=== PATIENT | male | born 1985 | race Caucasian/White ===

== ENCOUNTER 2020-12-03 14:00 | Emergency (ER) | payer OTHER, SELFPAY ==
[2020-12-03 14:21] VITALS: BP 131/70; PULSE 73; RESP 18; TEMP 37.1; O2SAT 100
--- NOTE | 2020-12-03 14:36 | ED.URI ---
HPI - URI/Sore Throat General Chief Complaint: Upper Respiratory Infection Stated Complaint: Congestion,Headache,Nausea,Body Aches Time Seen by Provider: 12/03/20 14:37 Source: patient Mode of arrival: ambulatory Limitations: no limitations History of Present Illness HPI Narrative: Devin Zafar is a 35-year-old male with no PMH who comes to [facility] with complaints of upper respiratory symptoms such as congestion, occasional cough, muscle aches.. He has been exposed to Covid by 2 coworkers and he has had symptoms for 5 days. His has recently had heart surgery. Wants to be tested and treated. Has had Covid vaccine Related Data Home Medications Medication Instructions Recorded Confirmed No Home Medications 12/03/20 12/03/20 Allergies Allergy/AdvReac Type Severity Reaction Status Date / Time sulfamethoxazole Allergy Unknown Verified 12/03/20 14:38 [From Bactrim] trimethoprim [From Bactrim] Allergy Unknown Verified 12/03/20 14:38 Review of Systems Review of Systems: CONSTITUTIONAL: Denies fever, chills, sweats. EYES: Denies visual changes, redness, discharge. ENT: Has rhinorrhea, has congestion, has sore throat, otalgia. CARDIOVASCULAR: Denies chest pain, palpitations, edema. RESPIRATORY: Denies dyspnea, wheezing, cough GASTROINTESTINAL: Denies abdominal pain, nausea, vomiting, diarrhea. GENITOURINARY: Denies dysuria, hematuria, abnormal discharge SKIN: Denies rash or itching. NEUROLOGIC: Denies numbness, or focal weakness. PSYCHIATRIC: Denies anxiety or depression. PMFSH Past Medical History Medical History (Updated 12/03/20 @ 14:54 by Khadra Horta CNP) No acute medical problems Social History Social History (Updated 12/03/20 @ 14:42 by Khadra Horta CNP) Alcohol intake: current Comments At time of signature, I agree with nursing past medical, surgical, social and family history. There is no relevant family history pertinent to the presenting complaint. Exam Narrative: GENERAL: This is a well-nourished, well-developed patient, in mild distress. HEAD: normocephalic, atraumatic. EYES: Sclera clear/white. Vision is grossly intact. EARS: External ears normal, auditory canals clear and without drainage, TMs normal without perforation. Hearing grossly intact. NOSE: External nose normal without nasal discharge, nares without redness, no rhinorrhea. THROAT: Mucous membranes moist, posterior pharynx mild erythema NECK: Neck supple, non-tender CARDIOVASCULAR: Regular rate and rhythm without murmurs, gallops, or rubs. RESPIRATORY: Clear to auscultation. Breath sounds equal bilaterally. GASTROINTESTINAL: Not performed, SKIN: warm, intact with no suspicious lesions or rash, good texture and turgor. NEURO: awake, alert, and oriented to person, place and time. There were no obvious focal neurologic abnormalities. Steady gait EXTREMITIES: Normal range of motion. BACK: Nontender without deformity Course Course Emergency Course: Patient here with suppose it 5 days of symptoms of upper respiratory congestion and sore throat and exposure to other people that had Covid Covid, strep, flu all negative Discharged with information about Covid and viral transmission-since he received vaccination, is not required quarantine Vital Signs Vital signs: Vital Signs Temperature 98.8 F 12/03/20 14:21 Pulse Rate 73 12/03/20 14:21 Respiratory Rate 18 12/03/20 14:21 Blood Pressure 131/70 12/03/20 14:21 Pulse Oximetry 100 12/03/20 14:21 Temperature 98.8 F 12/03/20 14:21 Pulse Rate 73 12/03/20 14:21 Respiratory Rate 18 12/03/20 14:21 Blood Pressure 131/70 12/03/20 14:21 Pulse Oximetry 100 12/03/20 14:21 MDM - URI/Sore Throat Differential Diagnosis Differential diagnosis: Likely upper respiratory infection, viral infection, influenza, pharyngitis and other Lab Data Labs: Lab Results 12/03/20 Range/Units 14:33 POC SARS CoV-2 Ag Negative (Negative)
== END 2020-12-03 15:05 | disposition home or self-care (01) ==
PROVIDERS: Emergency Provider Nurse Practitioner
DX: Z20.822 Contact with and (suspected) exposure to COVID-19 (principal); R09.89 Other specified symptoms and signs involving the circulatory and respiratory systems; R51.9 Headache, unspecified; R11.0 Nausea
CPT/HCPCS: 87081; 87426; 87804; 87880; 99203; C9803; G0463

== ENCOUNTER 2021-02-18 10:04 | Emergency (ER) | payer OTHER, SELFPAY ==
[2021-02-18 10:47] VITALS: BP 132/86; PULSE 93; RESP 16; TEMP 36.7; O2SAT 100
--- NOTE | 2021-02-18 11:39 | ED.URI ---
HPI - URI/Sore Throat General Chief Complaint: Upper Respiratory Infection Stated Complaint: Fever,Headache,Fatigue Time Seen by Provider: 02/18/21 11:30 Source: patient and RN notes reviewed Mode of arrival: ambulatory Limitations: no limitations History of Present Illness HPI Narrative: Patient presents today with a 3-day history of chills with fever up to 101, fatigue, headache. Denies any additional symptoms to include rhinorrhea, body aches, cough, sore throat. He took a COVID-19 test yesterday that was negative. He has been taking Tylenol with some relief and currently rates his headache 05/24. He has been vaccinated against COVID-19 and has not had an influenza vaccine. MD elicited complaint: fever Related Data Home Medications Medication Instructions Recorded Confirmed 24 Hour Allergy Relief 02/18/21 Allergies Allergy/AdvReac Type Severity Reaction Status Date / Time sulfamethoxazole Allergy Unknown Verified 02/18/21 11:11 [From Bactrim] trimethoprim [From Bactrim] Allergy Unknown Verified 02/18/21 11:11 Review of Systems Review of Systems: CONSTITUTIONAL: Denies body aches, or sweats.+ Fever, chills, fatigue EYES: Denies visual changes, redness, or discharge. ENT: Denies rhinorrhea, congestion, sore throat, or otalgia. CARDIOVASCULAR: Denies chest pain, palpitations, or edema. RESPIRATORY: Denies cough or dyspnea. GASTROINTESTINAL: Denies abdominal pain, nausea, vomiting, or diarrhea. GENITOURINARY: Denies dysuria or hematuria. SKIN: Denies rash, itching, or wounds. MUSCULOSKELETAL: Denies back pain, joint pain, or myalgia. NEUROLOGIC: Denies numbness, tingling, or weakness.+ Headache PSYCH: Denies depression or anxiety. [facility] Past Medical History Medical History No acute medical problems Social History Social History Alcohol intake: current Comments At time of signature, I have reviewed and agree with nursing past medical, surgical, social and family history unless otherwise noted. Please see nursing chart for further information. There is no relevant family history pertinent to the presenting complaint Exam Narrative: GENERAL: Well-appearing, well-nourished, and in no acute distress. HEAD: Normocephalic, atraumatic. EYES: EOMI. No redness or drainage. Conjunctivae normal. ENT: Mucous membranes pink and moist. Nares clear. No rhinorrhea. TMs normal bilaterally. Throat normal. Uvula midline. NECK: Normal AROM. Supple. No lymphadenopathy. CHEST: No respiratory distress. Clear to auscultation. HEART: Regular rate and rhythm. No murmur appreciated. Normal peripheral pulses. EXTREMITIES: Normal range of motion. No edema. SKIN: Warm, dry, no rash. Capillary refill normal. Normal skin turgor. NEURO: No focal deficits. Alert and oriented x3. Gait steady. PSYCH: Normal affect. No signs of depression or anxiety. Course Course Level of Care: Express Care Visit Vital Signs Vital signs: Vital Signs Temperature 98.0 F 02/18/21 10:47 Pulse Rate 93 02/18/21 10:47 Respiratory Rate 16 02/18/21 10:47 Blood Pressure 132/86 02/18/21 10:47 Pulse Oximetry 100 02/18/21 10:47 Temperature 98.0 F 02/18/21 10:47 Pulse Rate 93 02/18/21 10:47 Respiratory Rate 16 02/18/21 10:47 Blood Pressure 132/86 02/18/21 10:47 Pulse Oximetry 100 02/18/21 10:47 At time of signature, I have reviewed and agree with nursing past medical, surgical, social and family history unless otherwise noted. Please see nursing chart for further information. There is no relevant family history pertinent to the presenting complaint MDM - URI/Sore Throat Differential Diagnosis Differential diagnosis: Likely upper respiratory infection, viral infection and influenza Lab Data Attestation: I reviewed the patient's lab results. Labs: Influenza A Screen Ne
== END 2021-02-18 12:28 | disposition home or self-care (01) ==
PROVIDERS: Emergency Provider Nurse Practitioner
DX: B34.9 Viral infection, unspecified (principal)
CPT/HCPCS: 87804; 99213; G0463

== ENCOUNTER 2022-07-11 08:43 | Emergency (ER) | payer OTHER, SELFPAY ==
--- NOTE | 2022-07-11 08:45 | ED.EXTPRO ---
HPI - Extremity Problem General Chief complaint: Extremity Injury, Lower Stated complaint: Big Toe Lt Foot Time Seen by Provider: 07/11/22 08:44 Source: patient Mode of arrival: ambulatory Limitations: no limitations History of Present Illness HPI Narrative: Devin is a 36-year-old male patient presenting to the clinic today with complaints of left great toe pain/infected toenail. He reports yesterday he attempted to remove a ingrown toenail and now it is red and swollen. He states that he has had the ingrown toenail for some time and bumped his toe against an object a few days ago and it became more red and swollen. Does have some yellowish white purulent discharge coming from the toe. Is very tender to palpation. States he thinks he got the ingrown toenail out last night however the redness and swelling has increased. Related Data Home Medications Medication Instructions Recorded Confirmed 24 Hour Allergy Relief 02/18/21 Allergies Allergy/AdvReac Type Severity Reaction Status Date / Time sulfamethoxazole Allergy Unknown Verified 07/11/22 08:56 [From Bactrim] trimethoprim [From Bactrim] Allergy Unknown Verified 07/11/22 08:56 Review of Systems Review of Systems: Pertinent positives per HPI. Patient denies any fever, chills, rash, headache, visual changes, dizziness, cough, runny nose, sore throat, shortness of breath, chest pain, palpitations, nausea, vomiting, diarrhea, constipation, abdominal pain, or any urinary issues. PMFSH Past Medical History Medical History No acute medical problems Social History Social History Alcohol intake: current Comments At the time of my signature, I reviewed and agree with the nursing past medical, surgical, social, and family history. There is no relevant family history pertinent to the patient complaint. Exam Narrative: General: Well-developed, well nourished, in no apparent distress Head: Normocephalic, atraumatic. Cardio: Regular rate and rhythm, s1 and s2 normal, no murmur appreciated. Resp: Clear to auscultation bilaterally, no rhonchi, rales, wheezing or rubs. Musculoskeletal: No deformity, redness and swelling to the lateral aspect of the left great toe, tender to palpation over the left lateral great toe, some yellow white purulent discharge noted to the left lateral toe nail bed from where ingrown toenail was removed, grossly normal range of motion, muscle strength strong and equal, peripheral pulse strong, no edema, no cyanosis, normal gait and station Course Course Emergency Course: Portions of this record may have been created with voice recognition software. Level of Care: Express Care Visit Vital Signs Vital signs: Vital Signs Temperature 36.5 C 07/11/22 08:50 Pulse Rate 57 L 07/11/22 08:50 Respiratory Rate 18 07/11/22 08:50 Blood Pressure 130/79 07/11/22 08:50 Pulse Oximetry 100 07/11/22 08:50 Oxygen Delivery Room Air 07/11/22 08:50 Temperature 36.5 C 07/11/22 08:50 Pulse Rate 57 L 07/11/22 08:50 Respiratory Rate 18 07/11/22 08:50 Blood Pressure 130/79 07/11/22 08:50 Pulse Oximetry 100 07/11/22 08:50 Oxygen Delivery Room Air 07/11/22 08:50 Vital signs reviewed MDM - Extremity (Nontraumatic) MDM Narrative Medical decision making narrative: At the time of the patient is resting on the exam table. I suspect patient may have an ingrown toenail infection/cellulitis to the left great toe. Prescription for doxycycline and mupirocin cream was sent to the pharmacy and supportive measures were discussed with the patient he voiced understanding of discharge instructions and agrees to treatment plan. Differential Diagnosis Differential diagnosis: Likely cellulitis and other (Infected ingrown toenail, skin infection) Discharge Plan Discharge Clinical Impression: Infe
[2022-07-11 08:50] VITALS: BP 130/79; PULSE 57; RESP 18; TEMP 36.5; O2SAT 100
== END 2022-07-11 09:13 | disposition home or self-care (01) ==
PROVIDERS: Emergency Provider Nurse Practitioner Family
DX: L08.9 Local infection of the skin and subcutaneous tissue, unspecified (principal)
CPT/HCPCS: 99213; G0463

== ENCOUNTER 2022-07-25 09:30 | Emergency (ER) | payer OTHER, SELFPAY ==
[2022-07-25 09:58] VITALS: BP 142/87; PULSE 65; RESP 18; TEMP 36.2; O2SAT 100
--- NOTE | 2022-07-25 10:04 | ED.LOWEXIN ---
HPI - Extremity Injury (Lower) General Chief Complaint: Extremity Injury, Lower Stated Complaint: ingrown toenail Time Seen by Provider: 07/25/22 10:04 Source: patient Mode of arrival: ambulatory Limitations: no limitations History of Present Illness HPI Narrative: 36-year-old male presents with concern for ingrown toenail to left Great toe. Patient states that he was seen here approximately 1 week ago and given antibiotic for infection to his ingrown toenail. He states that it is still painful and would like it removed. He does not have a primary care physician. He has not called a tile grader for follow-up from his last visit at the medical center. All systems reviewed and negative except as noted above. Related Data Home Medications Medication Instructions Recorded Confirmed loratadine 10 mg tablet (Claritin) 10 mg PO DAILY 07/25/22 07/25/22 Allergies Allergy/AdvReac Type Severity Reaction Status Date / Time sulfamethoxazole Allergy Unknown Verified 07/11/22 08:56 [From Bactrim] trimethoprim [From Bactrim] Allergy Unknown Verified 07/11/22 08:56 Review of Systems Review of Systems: CONSTITUTIONAL: Denies fever, chills, or sweats. EYES: Denies visual changes, redness, or discharge. ENT: Denies rhinorrhea, congestion, sore throat, or otalgia. CARDIOVASCULAR: Denies chest pain, palpitations, or edema. RESPIRATORY: Denies cough or dyspnea. GASTROINTESTINAL: Denies abdominal pain, nausea, vomiting, or diarrhea. GENITOURINARY: Denies dysuria or hematuria. SKIN: Reports ingrown toenail to left great toe. MUSCULOSKELETAL: Denies back pain, joint pain, or myalgia. NEUROLOGIC: Denies headache, numbness, or weakness. PSYCHIATRIC: Denies anxiety or depression. All other systems reviewed are negative, except as documented in HPI. PMFSH Past Medical History Medical History No acute medical problems Social History Social History Alcohol intake: current Comments At time of signature, agree with nursing past medical, surgical, social and family history. There is no relevant family history pertinent to the presenting complaint. Exam Narrative: GENERAL: This is a well-nourished, well-developed patient, in no apparent distress. HEAD: normocephalic, atraumatic. EYES: PERRL. Sclera clear/white. Vision is grossly intact. EARS: External ears normal NOSE: External nose normal NECK: Neck supple, non-tender without lymphadenopathy, masses or thyromegaly. CARDIOVASCULAR: Regular rate and rhythm without murmurs, gallops, or rubs. RESPIRATORY: Clear to auscultation. Breath sounds equal bilaterally. No wheezes, rales, or rhonchi. SKIN: warm, Dry, intact with no suspicious lesions or rash, good texture and turgor. there is erythema, swelling to medial aspect of left great toe. No drainage. Tender on palpation. Possibly an ingrown toenail. NEURO: awake, alert, and oriented to person, place and time. There were no obvious focal neurologic abnormalities. EXTREMITIES: No joint tenderness, effusion, or edema noted. Course Course Level of Care: Express Care Visit Vital Signs Vital signs: Vital Signs Temperature 36.2 C L 07/25/22 09:58 Pulse Rate 65 07/25/22 09:58 Respiratory Rate 18 07/25/22 09:58 Blood Pressure 142/87 H 07/25/22 09:58 Pulse Oximetry 100 07/25/22 09:58 Oxygen Delivery Room Air 07/25/22 09:58 Temperature 36.2 C L 07/25/22 09:58 Pulse Rate 65 07/25/22 09:58 Respiratory Rate 18 07/25/22 09:58 Blood Pressure 142/87 H 07/25/22 09:58 Pulse Oximetry 100 07/25/22 09:58 Oxygen Delivery Room Air 07/25/22 09:58 Reviewed MDM - Extremity Injury (Lower) MDM Narrative Medical decision making narrative: patient prescribed additional antibiotic today and referred to Podiatry for follow-up. Patient is aware of diagnosis,
== END 2022-07-25 10:27 | disposition home or self-care (01) ==
PROVIDERS: Emergency Provider Nurse Practitioner Family
DX: L60.0 Ingrowing nail (principal)
CPT/HCPCS: 99213; G0463